=== PATIENT | female | born 1935 | race Caucasian/White ===

== ENCOUNTER 2017-12-16 09:16 | Inpatient (IN) | payer MEDICARE ==
[2017-12-16] MEDS ORDERED: NS 0.9% 1000 ML* 1,000 ML IV ONE (09:55)
[2017-12-16 10:17] LABS: Hematocrit 34 % (35-47); Hemoglobin 10.9 g/dl (12.0-16.0); Mean Corpuscular HGB Conc 32 g/dl (31-36); Mean Corpuscular Hemoglobin 19 pg (27-31); Mean Corpuscular Volume 58 fL (80-97); Red Blood Count 5.79 10^6/ul (4.0-5.4); Red Cell Distribution Width 17 % (10.5-15); White Blood Count 8.4 10^3/ul (3.5-10.8)
--- NOTE | 2017-12-16 11:03 | ED ---
Lower Extremity - HPI Summary HPI Summary: Patient is an 82-year-old female who presents emergency department for left hip pain. Patient has a history of dementia and currently lives by herself with the help of an aid and family. Patient reportedly fell going to the mailbox on Sunday, 3 days ago. There is no report of head injury or loss of consciousness. Patient was evaluated at [facility] for left hip pain and x- rays were normal and patient was sent home. Caregiver who is present states that patient has been unable to walk since fall secondary to left hip pain. Prior to fall she was ambulatory with or without a walker. Caregiver states that today she was helping patient sit up when she heard a pop in her left hip and patient had increased pain. Symptoms are moderate in severity. Touching hip and walking makes symptoms worse. Nothing makes symptoms better. Patient received IV morphine and Zofran in the ambulance prior to arrival. - History of Current Complaint Chief Complaint: EDExtremityLower Stated Complaint: HIP PAIN Time Seen by Provider: 12/16/17 09:34 Hx Obtained From: Patient, Family/Reviewer Sales Hx From Patient Unobtainable Due To: Dementia Pain Intensity: 10 - Allergies/Home Medications Allergies/Adverse Reactions: Allergies Allergy/AdvReac Type Severity Reaction Status Date / Time No Known Allergies Allergy Verified 09/17/13 09:03 Home Medications: Home Medications Losartan TAB* [Cozaar TAB*] 50 mg PO BID 12/16/17 [History Confirmed 12/16/17] Meclizine HCl [Dramamine Less Drowsy] 25 mg PO TID 12/16/17 [History Confirmed 12/16/17] Metoprolol Tartrate TAB* [Lopressor TAB*] 25 mg PO BID 12/16/17 [History Confirmed 12/16/17] Omeprazole CAP* [Prilosec CAP* 20 MG] 40 mg PO DAILY 12/16/17 [History Confirmed 12/16/17] Pioglitazone TAB* [Actos TAB*] 30 mg PO DAILY 12/16/17 [History Confirmed ] amLODIPine TAB* [Norvasc 5 mg TAB*] 5 mg PO DAILY 12/16/17 [History Confirmed ] PMH/Surg Hx/FS Hx/Imm Hx Previously Healthy: Yes Infectious Disease History: No Infectious Disease History: Denies: Traveled Outside the [place] in Last 30 Days - Social History Occupation: Retired Lives: Alone Alcohol Use: Rare Substance Use Type: Reports: None Smoking Status (MU): Never Smoked Tobacco Review of Systems Constitutional: Negative Eyes: Negative ENT: Negative Cardiovascular: Negative Respiratory: Negative Gastrointestinal: Negative Genitourinary: Negative Positive: Other - Left hip and left rib pain Skin: Negative Neurological: Negative All Other Systems Reviewed And Are Negative: Yes Physical Exam Triage Information Reviewed: Yes Vital Signs On Initial Exam: Initial Vitals Temp Pulse Resp BP Pulse Ox 99.5 F 86 16 158/81 82 12/16/17 09:25 12/16/17 09:25 12/16/17 09:25 12/16/17 09:25 12/16/17 09:25 Vital Signs Reviewed: Yes Appearance: Positive: Well-Appearing - Patient lying in bed in no acute distress. Pleasantly confused. Skin: Positive: Warm, Dry Head/Face: Positive: Normal Head/Face Inspection Eyes: Positive: Normal Respiratory/Lung Sounds: Positive: Clear to Auscultation, Breath Sounds Present , Other - Pain on palpation to the left lower anterior ribs. Cardiovascular: Positive: Normal, RRR Abdomen Description: Positive: Nontender Musculoskeletal: Positive: Other - Left lower extremity is shortened and externally rotated. Good palpable pedal pulse. Diagnostics - Vital Signs Vital Signs Temp Pulse Resp BP Pulse Ox 12/16/17 09:53 95 12/16/17 09:25 99.5 F 86 16 158/81 82 - Laboratory Lab Results: Lab Results 12/16/17 12/16/17 12/16/17 Range/Units 10:07 10:07 10:07 WBC 8.4 (3.5-10.8) 10^3/ul RBC 5.79 H (4.0-5.4) 10^6/ul Hgb 10.9 L (12.0-16.0) g/dl Hct 34 L (35-47) % MCV 58 L (80-97) fL MCH 19 L (27-31) pg MCHC 32 (31-36) g/dl RDW 17 H (10.5-15) % Plt Count Pending MPV Pending Neut % (Auto) Pending Lymph % (Auto) Pending [place] % (Auto) Pending Eos % (Auto) Pending Baso % (Auto) Pending Absolute Neuts (auto) Pending Absolute Lymphs (auto) Pending Absolute Monos (auto) Pending Absolute Eos (auto) Pending Absolute Basos (auto) Pending Absolute Nucleated RBC Pending Nucleated RBC % Pending APTT 31.3 (26.0-36.3) seconds Sodium 136 L (139-145) mmol/L Potassium 3.8 (3.5-5.0) mmol/L Chloride 104 (101-111) mmol/L Carbon Dioxide 24 (22-32) mmol/L Anion Gap 8 (2-11) mmol/L BUN 19 (6-24) mg/dL Creatinine 0.83 (0.51-0.95) mg/dL Est GFR ( Amer) 84.9 (>60) Est GFR (Non-Af Amer) 66.0 (>60) BUN/Creatinine Ratio 22.9 H (8-20) Glucose 150 H (70-100) mg/dL Calcium 8.6 (8.6-10.3) mg/dL Total Bilirubin 0.80 (0.2-1.0) mg/dL AST 14 (13-39) U/L ALT 9 (7-52) U/L Alkaline Phosphatase 103 (34-104) U/L Troponin I 0.01 (<0.04) ng/mL Total Protein 6.7 (6.4-8.9) g/dL Albumin 3.2 (3.2-5.2) g/dL Globulin 3.5 (2-4) g/dL Albumin/Globulin Ratio 0.9 L (1-3) Result Diagrams: 12/16/17 10:07 12/16/17 10:07 Lab Statement: Any lab studies that have been ordered have been reviewed, and results considered in the medical decision making process. Lower Extremity Course/Dx - Course Course Of Treatment: Patient present with ongoing left hip pain and deformity after fall that occurred on Sunday. She is afebrile with stable vital signs. Patient received IV morphine en route to the ER. Basic workup and x-rays were ordered. Patient's caregiver who is present states she is at her baseline mental status. Labs are unremarkable. X-ray of the left hip shows a proximal femur fracture. I spoke with on-call orthopedics, Dr. Hunetr, and he plans on taking patient to or tomorrow if she clears medically. I spoke with hospitalist , Dr. Hunter, and pt. has been accepted to his service. - Diagnoses Differential Diagnosis/HQI/PQRI: Positive: Arthritis, Contusion, Dislocation, Fracture (Closed), Sciatica, Sprain, Strain Provider Diagnoses: Femur fracture Discharge - Sign-Out/Discharge Documenting (check all that apply): Discharge/Admit/Transfer - Discharge Plan Condition: Stable Disposition: ADMITTED TO [facility] - Billing Disposition and Condition Condition: STABLE Disposition: HOSP-[facility]
[2017-12-16 11:10] LABS: ABS Basophils 0.1 10^3/ul (0-0.2); ABS Eosinophils 0.2 10^3/ul (0-0.6); ABS Lymphocytes 0.8 10^3/ul (1.0-4.8); ABS Monocytes 0.7 10^3/ul (0-0.8); ABS Neutrophils 6.6 10^3/ul (1.5-7.7); ABS Nucleated RBC 0 10^3/ul; Eosinophil % 2.9 % (0-6); Lymphocyte % 9.6 % (25-47); Mean Platelet Volume 8.8 um3 (7.4-10.4); Nucleated Red Blood Cells % 0.1; Platelet Count 190 10^3/ul (150-450)
--- NOTE | 2017-12-16 13:04 | RAD ---
Indication: LEFT rib pain post fall. Comparison: No relevant prior exams available on the [facility] [place] for comparison. Technique: Frontal chest and 2 dedicated LEFT rib views obtained. No oblique LEFT rib view could be obtained due to limitation in patient positioning. Report: Elevated lung volumes and moderate prominence of interstitial markings. Suggestion of a 4 mm potentially calcified nodule at the periphery of the RIGHT lower lung zone. Mild elevation of the LEFT hemidiaphragm. LEFT basilar airspace consolidation may represent atelectasis or inflammatory infiltrate. Negative for pleural effusion or pneumothorax. Cardiomegaly. Unremarkable central pulmonary vasculature. Mildly tortuous thoracic aorta. Unremarkable soft tissue contours. IMPRESSION: 1. No LEFT rib fracture or pneumothorax evident. 2. Suggestion of a 4 mm potentially calcified nodule at the periphery of the RIGHT lower lung zone. In absence of prior exams to document stability a nonemergent follow-up chest CT would be suggested for further assessment. The patient may have had previous radiographs have [facility]. 3. Stigmata of chronic obstructive pulmonary disease. 4. LEFT basilar airspace consolidation may represent atelectasis or inflammatory infiltrate.
--- NOTE | 2017-12-16 13:08 | RAD ---
Indication: LEFT femur pain post fall. Comparison: No relevant prior exams available on the [facility] [place]ACS for comparison. Technique: AP pelvis and AP and oblique lateral views of the LEFT femur. Crosstable lateral view femur at the hip. Report: Subtrochanteric diaphyseal fracture of the LEFT femur with varus and apex anterior angulation. Diffuse decreased bone density without suggestion of a predisposing focal pathologic lesion at the intratrochanteric region of the femur. Small bone island at the intratrochanteric region. Surrounding soft tissue swelling proximal to mid thigh. The LEFT hip remains normally located. No pelvic fracture or pelvic joint diastases. IMPRESSION: Subtrochanteric diaphyseal fracture of the LEFT femur with varus and apex anterior angulation.
--- NOTE | 2017-12-16 13:08 | RAD ---
Indication: LEFT femur pain post fall. Comparison: No relevant prior exams available on the [facility] [place]ACS for comparison. Technique: AP pelvis and AP and oblique lateral views of the LEFT femur. Crosstable lateral view femur at the hip. Report: Subtrochanteric diaphyseal fracture of the LEFT femur with varus and apex anterior angulation. Diffuse decreased bone density without suggestion of a predisposing focal pathologic lesion at the intratrochanteric region of the femur. Small bone island at the intratrochanteric region. Surrounding soft tissue swelling proximal to mid thigh. The LEFT hip remains normally located. No pelvic fracture or pelvic joint diastases. IMPRESSION: Subtrochanteric diaphyseal fracture of the LEFT femur with varus and apex anterior angulation.
[2017-12-16] MEDS ORDERED: Morphine VIAL* 4 MG/ML VIAL (1 ml vial) IV PRN (13:13)
[2017-12-16] MEDS ORDERED: Dextrose 50% Syringe 50 ML* 25 GM/50 ML SYRINGE IV PUSH PRN (13:38)
[2017-12-16] MEDS: Metoprolol Tartrate TAB* 25 MG PO SCH ×2 (16:04→21:46)
[2017-12-16] MEDS: Omeprazole CAP* 20 MG PO SCH (16:04)
[2017-12-16] MEDS ORDERED: HYDROmorphone INJ* 2 MG/ML CARPUJECT SYRINGE IV SLOW PU PRN (16:05)
[2017-12-16] MEDS ORDERED: HYDROmorphone INJ* 2 MG/ML CARPUJECT SYRINGE ONE (16:06)
--- NOTE | 2017-12-16 17:04 | HP ---
HISTORY AND PHYSICAL: DATE OF ADMISSION: 12/16/17 ADMITTING PROVIDER: Ted Dominguez MD PRIMARY CARE PHYSICIAN: Jairo Mendez DO CHIEF COMPLAINT: Left hip pain. HISTORY OF PRESENT ILLNESS: Niki Jonas is an 82-year-old female with past medical history of hypertension, dementia, llc-fhxwhkt-lrrpbstol diabetes mellitus, who had a non-observed fall 2 days prior to admission, she was walking from paved area into grass area after picking up her mail. Her partner , Daina Cerda was quickly on the scene. She denies any loss of consciousness. She was taken to the ED at [facility] and had reportedly x-rays done that reportedly did not show any signs of fracture. She was discharged home. She has had reduced mobility, has been taken care of by her primary care physician, Marnie Villanueva, who is at bedside. Day prior to admission, they attempted to get her to the side of the bed and then into her rolling walker, but she was unable to support herself and they could not as well. She was assisted to the ground and then eventually lifted back into the bed. On day of admission, Marnie attempted to swing the patient's legs to the side of the bed to again try to help her sit on the side, but she immediately heard a pop and there was exquisite pain in the left hip area. She was brought to the [facility] Room and eventually had imaging consistent with femur fracture. She was referred to hospitalist service for admission with planned operational management of her subtrochanteric diaphyseal fracture of the left femur with Dr. Hunter on . The patient attests to 8-9/10 pain, may or may not have gotten some morphine with EMS (Marnie was told that she had gotten some at some point). She is a poor historian with history of dementia. She denies history of falls, but gets meclizine 3 times a day for chronic dizziness. Denies chest pain or shortness of breath currently, but is fairly immobile, walking slowly with a walker. She has chills, but no fevers. Chronically, Marnie attests to some chronic tenderness to palpation in the left upper quadrant and overall is "very sensitive," complaining of pain frequently in various locations. She denies any cardiac history other than high blood pressure for which she is on 3 agents. Has never reportedly had an echo, no EKG in our system. PAST MEDICAL HISTORY: Dementia, high blood pressure, noninsulin-dependent diabetes mellitus. She had a traumatic fall in February 2006, which showed "a little bit of intracerebral bleeding." She was diagnosed with a brain contusion. She had repeat MRI brain on 03/05/06, which showed a small subdural hematoma on the right side, small left frontal hemorrhagic contusion, subcutaneous subgaleal hematoma of the right occipital lobe. Repeat CT on 03/06 showed no changes. MEDICATIONS: Include: 1. Omeprazole 40 mg daily. 2. Meclizine 25 mg 3 times a day. 3. Metoprolol tartrate 25 mg twice a day. 4. Amlodipine 5 mg once a day. 5. Pioglitazone 30 mg once a day. 6. Losartan 50 mg twice a day. ALLERGIES: No known drug allergies. FAMILY HISTORY: The patient [facility] after given up for adoption. Does not know much about her 6 biological siblings, the one of which was in a group home and a half-brother who was contacted few years ago by Marnie. 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 She is a never smoker. Occasionally had small amounts of alcohol, but none recently. She lives with Dave Cerda, who is her partner who is recently discharged from [facility], history of schizophrenia, age 79. Marnie Villanueva is her power of real estate associate attorney. She reportedly is a DNR/DNI. MOLST form is not present on admission. REVIEW OF SYSTEMS: A complete 14-point review of systems negative except as per HPI. She is a poor historian overall. She does have a history of what was thought to be perhaps urinary bleeding and had a workup with Dr. Malik in the past including a CT urogram in 2013. Denies history of colonoscopy as does Marnie. She had cholelithiasis on the CT urogram on 09/17/13. PHYSICAL EXAMINATION GENERAL: Moderate distress intermittent, lying in hospital bed. VITAL SIGNS: Temperature 99.5; pulse rate 78 to 84; respiratory rate 16 to 20; initially oxygen sat was 82% on room air, now 92% on 2 L; blood pressure 158/81 , now 124/57. HEENT: Normocephalic, atraumatic. Pupils are equal, round, and reactive to light. No scleral icterus. NECK: No cervical lymphadenopathy. Neck is supple. RESPIRATORY: Anteriorly clear to auscultation bilaterally with no wheezing, rales, or rhonchi. CARDIOVASCULAR: Regular rate and rhythm. No murmurs, rubs, or gallops. ABDOMEN: Soft, nondistended, slightly tender in the left upper quadrant. EXTREMITIES: Warm, well perfused. There is foreshortening of the left extremity. NEURO: Sensation intact. Wiggles both toes. Vacuum Pan Operator strength intact. She is oriented to name, but not year or place. She thinks she is in an apartment building. Memory is not great, though she does recognize [place] by name. SKIN: No lesions. No rashes. LABORATORY DATA: White count 8.4, hemoglobin 10.9, hematocrit 34, MCV 58, platelets 190. Sodium 136, potassium 3.8, chloride 104, carbon dioxide 24, BUN 19, creatinine 0.83, glucose 150. AST 14, ALT 9, alk phos 103. Troponin 0.01. IMAGING: Pelvis x-ray demonstrated subtrochanteric diaphyseal fracture of the left femur with varus and apex anterior angulation. Ribs with chest x-ray demonstrated no left rib fracture. There is a 4 mm potentially calcified nodule at the periphery of the right lower lung zone, stigmata of COPD, left basilar airspace consolidation may represent atelectasis or inflammatory infiltrate. The femur x- ray on the left, which again showed subtrochanteric diaphyseal fracture of the left femur with varus and apex anterior angulation. ASSESSMENT AND PLAN: Niki Jonas is an 82-year-old female with history of significant dementia, hypertension, hda-sjwomop-eyttejmsk diabetes mellitus. Her functional status seems somewhat limited. It is not clear that she can achieve 4 METs. An EKG was obtained, which shows T-wave inversion in V1, normal sinus rhythm, normal axis, poor R-wave progression, no ST elevations or changes. I will try to obtain records from Dr. Mendez' office. Her last A1c was 6.3 in June 2017. We will repeat that. Her last LDL was 102, HDL was 43. We will consider adding an echocardiogram given her limited ability (secondary to dementia?) to go upstairs or probably achieve 4 METs of activity given her high blood pressure and diabetes. Otherwise, she is medically optimized for surgery with Dr. Hunter tomorrow. We will get point of care glucose testing q.a.c. q.h.s. with sliding scale insulin. Continue her metoprolol, losartan and Norvasc. Hold her pioglitazone. Continue her omeprazole. Her medical surrogate is Marnie Kay. We will have to get the MOLST from home or fill out a new one. She is a DNR/DNI. She can eat a carbohydrate consistent heart- healthy diet. Physical therapy will have to be onboard after the surgery. She gets significant 7-day a week help from home health aides, but likely will need SNF home going. She also has a history of what seems like anemia at the ER labs with severe microcytosis. I am adding on iron panel, ferritin level, concern for possible thalassemia, but we will await for further records from Dr. Mendez before potentially doing any hemoglobin electrophoresis. She is being admitted to the inpatient status. [id number]/[facility] #: [id number] JACOB
[2017-12-16] MEDS ORDERED: Ondansetron INJ* 2 MG/ML VIAL IV PRN (17:56)
[2017-12-16] MEDS: Insulin LISPRO* 1 UNITS UNIT SUBCUT SCH ×2 (18:01→22:10)
--- NOTE | 2017-12-16 18:12 | PN ---
Progress Note - Progress Note Date of Service: 12/16/17 Note: Full note dictated. Displaced L subtrochanteric femur fracture. Dr. Dominguez doing medical optimization. It sounds like she will be ready for tomorrow so npo at midnight and plan for closed versus open reduction and internal fixation with a long gamma nail.
--- NOTE | 2017-12-16 20:52 | CONS ---
CONSULTATION REPORT: DATE OF CONSULT: 12/16/17 CHIEF COMPLAINT: Left femur fracture. HISTORY OF PRESENT ILLNESS: Niki is 82 years old. She has past medical history of hypertension, dementia, and noninsulin-dependent diabetes. A couple of days ago, she had a fall on to a grassy area. She was taken to [facility] where x- rays were reportedly done and per the information I have available to me, these were negative for any issues and so they sent her home. She continued to have left hip pain. This morning, Marnie her caregiver for many years and her power-of- securities attorney was noticed that the area was swollen and she decided something was wrong and so she brought her back in and a subtrochanteric femur fracture was identified. She was in severe pain. She was admitted by the hospitalist service and I was consulted for her orthopedic care. She is not complaining of pain in other areas. PAST MEDICAL HISTORY: Again taken from her chart. This is positive for dementia, hypertension, diabetes. Her H and P mentions fall in February 2006, which showed a little bit of intracranial bleeding and she was diagnosed with a brain contusion. Repeat MRI of the brain on 02/2017 showed small subdural hematoma as well as a small left frontal hemorrhagic contusion and subcutaneous subgluteal hematoma on the right occipital lobe. Repeat CT scan in March 06 showed no changes. PAST SURGICAL HISTORY: Not available to me. MEDICATIONS: These include: 1. Omeprazole. 2. Meclizine. 3. Metoprolol. 4. Amlodipine. 5. Pioglitazone. 6. Losartan. ALLERGIES: No known drug allergies. FAMILY HISTORY: Noncontributory. SOCIAL HISTORY: She is a former direct support worker. She lives with her partner, Dave. He has schizophrenia and was recently in the [facility]. She is cared for by a caregiver, Marnie Hamilton whose phone number is . As I understand that she has never smoked and does not have any issues with substance abuse. REVIEW OF SYSTEMS: This is largely unobtainable due to her slightly altered mental status secondary to the fracture pain and now extensive narcotic pain medication. PHYSICAL EXAM: General: Awake, but did not really conversive. Her vital signs are 98.5, 89, 143/63, 20, and 97% on room air. HEENT: Normocephalic, atraumatic. Neck is supple. She moves it without any apparent pain. Respiratory: She has normal respiratory effort. Extremities: The left lower extremity is significantly shortened and externally rotated. She does not really comply with the neurological exam, but I do note that just grossly she seems to be wiggling her toes. Skin: Some mild bruising. No bleeding or lacerations. DIAGNOSTIC STUDIES/LAB DATA: Her white blood cell count 8.4, H and H 10.9 and 34, platelet count is 190. APTT is 31.3. Sodium is 136, creatinine is 0.83, glucose is 150. Liver enzymes are all within normal limits. IMAGING: X-rays of the pelvis and left femur show a displaced subtrochanteric femur fracture. IMPRESSION: Displaced left subtrochanteric femur fracture. She likely fractured the femur a couple of days ago when she had the fall and now has displaced the fracture. PLAN: She has been admitted by the hospitalist service and appropriately been placed on bed rest and is receiving IV hydration and Gonzalez catheter has been placed. Dr. Dominguez with the hospitalist service is performing her medical optimization based off of his note, he says he may consider adding an echocardiogram, but otherwise she is medically optimized for surgery tomorrow. We will make her n.p.o. at midnight. The plan will be for close versus open reduction of the left femur fracture with long gamma nail internal fixation. It sounds like her medical decision maker is Marnie Hamilton, her power-of- securities attorney, again the number is [phone]. She does not have any children. She does have a longstanding partner, Dave, but he has pretty extensive psychiatric illness and is recently discharged from the [facility]. We will review from all this in the morning. [id number]/[facility] #: [id number] JACOB
[2017-12-16] MEDS: Morphine VIAL* 4 MG/ML VIAL (1 ml vial) IV PRN (22:06)
[2017-12-16] MEDS: Losartan TAB* 25 MG PO SCH (22:13)
[2017-12-17] MEDS: Morphine VIAL* 4 MG/ML VIAL (1 ml vial) IV PRN ×3 (03:39→10:27)
[2017-12-17 05:54] LABS: Hematocrit 34 % (35-47); Hemoglobin 10.9 g/dl (12.0-16.0); Mean Corpuscular HGB Conc 32 g/dl (31-36); Mean Corpuscular Hemoglobin 19 pg (27-31); Mean Corpuscular Volume 59 fL (80-97); Red Blood Count 5.67 10^6/ul (4.0-5.4); Red Cell Distribution Width 17 % (10.5-15)
[2017-12-17 06:15] LABS: EGFR Non-African American 66.9 (>60)
[2017-12-17 06:17] LABS: ABS Basophils 0.1 10^3/ul (0-0.2); ABS Eosinophils 0.3 10^3/ul (0-0.6); ABS Lymphocytes 1.4 10^3/ul (1.0-4.8); ABS Monocytes 0.9 10^3/ul (0-0.8); ABS Neutrophils 6.3 10^3/ul (1.5-7.7); ABS Nucleated RBC 0 10^3/ul; Eosinophil % 3.1 % (0-6); Lymphocyte % 15.4 % (25-47); Mean Platelet Volume 9.1 um3 (7.4-10.4); Nucleated Red Blood Cells % 0.1; Platelet Count 192 10^3/ul (150-450)
[2017-12-17] MEDS: Insulin LISPRO* 1 UNITS UNIT SUBCUT SCH ×4 (07:18→21:02)
--- NOTE | 2017-12-17 08:35 | ECHO ---
Patient: BHANU MIKE [facility] Rec#: [id number] : 1935 Date: 12/17/2017 Age: 82y Height: 157.48 cm / 62.0 in Weight: 65.77 kg / 145.0 lbs Sex: F BSA: 1.67 Room#: 334 Admit Date#: 12/16/2017 Type: Inpatient Referring: Ted Dominguez Reading: Dax Allred MD Straightening Machine Feeder: Trisha Waite RDCS CC: Jairo Mendez DO Transthoracic Echocardiogram Indication: Abn EKG BP: 121/65 HR: 88 Rhythm: NSR Findings History: Prior fall with subdural hematoma and brain contusion,dementia,HTN,admitted after a fall that fractured a hip. Technical Comments: The study is technically difficult. Completed at 0815. The study was technically limited due to the patient's inability to lay in the left lateral decubitus position. Left Ventricle: The left ventricular chamber size is decreased. Global left ventricular wall motion and contractility are within normal limits. There is normal left ventricular systolic function. The estimated ejection fraction is 55-60%. Abnormal left ventricular diastolic function is observed. Left Atrium: The left atrial chamber size is normal. Right Ventricle: The right ventricular cavity size is normal. The right ventricular global systolic function is normal. Right Atrium: The right atrium is not well visualized. Aortic Valve: The aortic valve is trileaflet. There is no evidence of aortic regurgitation. There is no evidence of aortic stenosis. Mitral Valve: The mitral valve leaflets are mildly thickened. There is no evidence of mitral regurgitation. There is no evidence of mitral stenosis. Tricuspid Valve: The tricuspid valve leaflets are normal. There is mild tricuspid regurgitation. Unable to estimate the right ventricular systolic pressure. There is no tricuspid stenosis. Pulmonic Valve: The pulmonic valve appears normal in structure and function. The pulmonic valve appears normal. Pericardium: The pericardium appears normal. Aorta: There is no dilatation of the ascending aorta. There is no dilatation of the aortic arch. There is no dilation of the aortic root. Pulmonary Artery: The main pulmonary artery appears normal. Venous: The venous system is not well visualized. Conclusions Global left ventricular wall motion and contractility are within normal limits. There is normal left ventricular systolic function. The estimated ejection fraction is 55-60%. The right ventricular global systolic function is normal. There is no evidence of aortic regurgitation. There is no evidence of mitral regurgitation. There is mild tricuspid regurgitation. Unable to estimate the right ventricular systolic pressure. There is no dilatation of the ascending aorta. Measurements Name Value Normal Range RVIDd (AP) 2D 2.8 cm (0.9 - 2.6) IVSd (2D) 0.7 cm (0.6 - 1) LVPWd (2D) 0.8 cm (0.6 - 1) LVIDd (2D) 3.5 cm (3.6 - 5.4) LVIDs (2D) 2.5 cm - LV FS (2D) 30 % (25 - 45) Aortic Annulus 1.9 cm (1.4 - 2.6) Ao root diameter (2D) 3.1 cm (2.1 - 3.5) Ascending Ao 3 cm (2.1 - 3.4) Aortic arch 2.2 cm (1.8 - 3.4) Descending Ao 0.4 cm - LA dimension (AP) 2D 2.6 cm (2.3 - 3.8) Name Value Normal Range MV E-wave Vmax 0.7 m/sec - MV deceleration time 252 msec - MV A-wave Vmax 1.1 m/sec - MV E:A ratio 0.66 ratio - LV septal e' Vmax 0.06 m/sec - LV lateral e' Vmax 0.08 m/sec - LV E:e' septal ratio 11.66 ratio - LV E:e' lateral ratio 8.75 ratio - Name Value Normal Range AV Vmax 1.4 m/sec - AV VTI 33 cm - AV peak gradient 7.42 mmHg - AV mean gradient 3.36 mmHg - LVOT Vmax 1.2 m/sec - LVOT VTI 28.3 cm - LVOT peak gradient 5.8 mmHg - LVOT mean gradient 2.25 mmHg - Name Value Normal Range TR Vmax 3.1 m/sec - TR peak gradient 37 mmHg - Name Value Normal Range PV Vmax 0.9 m/sec - PV peak gradient 2.94 mmHg -
--- NOTE | 2017-12-17 08:58 | PN ---
Hospitalist Progress Note Date of Service: 12/17/17 ECHO back, preserved EF, abnormal diastolic dysfunction, mild Tricuspid Valve Regurg. Patient cleared medically for left femur fracture surgery.
[2017-12-17] MEDS: amLODIPine TAB* 5 MG PO SCH (10:15)
[2017-12-17] MEDS: Losartan TAB* 25 MG PO SCH ×2 (10:15→21:03)
[2017-12-17] MEDS: Omeprazole CAP* 20 MG PO SCH (10:16)
[2017-12-17] MEDS: Metoprolol Tartrate TAB* 25 MG PO SCH ×2 (10:23→21:03)
[2017-12-17] MEDS ORDERED: fentaNYL* 50 MCG/ML 2 ML VIAL (100 MCG VIAL) ONE (12:06)
[2017-12-17] MEDS ORDERED: Midazolam* 1 MG/ML 5 ML VIAL (5 MG) ONE (12:06)
[2017-12-17] MEDS ORDERED: ceFAZolin 2 GM PREMIX (*) 2 GM/50 ML BAG IVPB ONE (13:00)
[2017-12-17] MEDS ORDERED: Lidocaine 2% PF * 5 ML VIAL ONE (14:52)
[2017-12-17] MEDS ORDERED: Ketorolac INJ* 30 MG/ML 1 ML VIAL ONE (14:52)
[2017-12-17] MEDS ORDERED: Dexamethasone IV* 4 MG/ML 1 ML (4 MG) ONE (14:52)
[2017-12-17] MEDS ORDERED: Propofol* 10 MG/ML 20 ML BTL IV PUSH ONE (14:52)
[2017-12-17] MEDS ORDERED: Naloxone* 0.4 MG/ML 1 ML VIAL IV PRN (14:54)
[2017-12-17] MEDS ORDERED: DiMENhydriNATE IV* 50 MG/ML VIAL IV PUSH PRN (14:54)
[2017-12-17] MEDS ORDERED: Acetaminophen IV 1GM/100ML * 1,000 MG/100 ML VIAL IVPB ONE (14:54)
[2017-12-17] MEDS ORDERED: HYDROmorphone INJ* 1 MG/ML CARPUJECT SYRINGE IV PRN (14:54)
[2017-12-17] MEDS ORDERED: HYDROmorphone INJ* 1 MG/ML CARPUJECT SYRINGE ONE (15:09)
[2017-12-17] MEDS ORDERED: Acetaminophen IV 1GM/100ML * 100 ML ONE (15:32)
--- NOTE | 2017-12-17 16:05 | RAD ---
INDICATION: Left femur fracture, fall COMPARISONS: December 16, 2017 TECHNIQUE: Fluoroscopy was provided for a surgical procedure. Total fluoroscopy time is: 80 seconds FINDINGS: Spot images demonstrate internal fixation of the femur. IMPRESSION: FLUOROSCOPY WAS PROVIDED FOR A SURGICAL PROCEDURE CPT II Codes: G9500
--- NOTE | 2017-12-17 20:14 | PN ---
Subjective Date of Service: 12/17/17 Interval History: ECHO back, preserved EF, abnormal diastolic dysfunction, mild Tricuspid Valve Regurg. Patient cleared medically for left femur fracture surgery. Medically cleared for surgery. Pain moderately controlled. Objective Active Medications: Amlodipine Besylate (Norvasc Tab*) 5 mg PO DAILY [facility] Last Admin: 12/17/17 10:15 Dose: Not Given Dextrose (D50w Syringe 50 Ml*) 12.5 gm IV PUSH .FOR FS < 60 - SS PRN PRN Reason: FS < 60 Cefazolin Sodium/Dextrose (Kefzol 1 Gm In Dextrose Duplex (*)) 1 gm in 50 mls @ 200 mls/hr IVPB Q8H [facility] Stop: 12/18/17 13:14 Insulin Human Lispro (Humalog*) 0 units SUBCUT ACHS [facility] PRN Reason: Protocol Last Admin: 12/17/17 17:50 Dose: Not Given Losartan Potassium (Cozaar Tab*) 50 mg PO BID [facility] Last Admin: 12/17/17 10:15 Dose: Not Given Metoprolol Tartrate (Lopressor Tab*) 25 mg PO BID [facility] Last Admin: 12/17/17 10:23 Dose: 25 mg Morphine Sulfate (Morphine Vial*) 2 mg IV Q3H PRN PRN Reason: PAIN - MILD Last Admin: 12/17/17 10:27 Dose: 2 mg Naloxone HCl (Narcan*) 0.08 mg IV Q2M PRN PRN Reason: severe induced resp depression Stop: 12/18/17 14:53 Omeprazole (Prilosec Cap*) 40 mg PO DAILY [facility] Last Admin: 12/17/17 10:16 Dose: Not Given Ondansetron HCl (Zofran Inj*) 4 mg IV Q4H PRN PRN Reason: NAUSEA Last Admin: 12/16/17 18:05 Dose: 4 mg Vital Signs - 8 hr 12/17/17 12/17/17 12/17/17 15:36 15:37 15:40 Temperature 98.1 F Pulse Rate 77 75 74 Respiratory 16 17 13 Rate Blood Pressure 146/71 (mmHg) O2 Sat by Pulse 87 89 91 Oximetry 12/17/17 12/17/17 12/17/17 15:41 15:45 15:46 Temperature Pulse Rate 75 67 66 Respiratory 19 18 10 Rate Blood Pressure 146/68 123/65 (mmHg) O2 Sat by Pulse 90 96 95 Oximetry 12/17/17 12/17/17 12/17/17 15:50 15:51 15:55 Temperature Pulse Rate 66 63 66 Respiratory 10 18 13 Rate Blood Pressure 109/51 (mmHg) O2 Sat by Pulse 91 91 91 Oximetry 12/17/17 12/17/17 12/17/17 15:56 16:00 16:01 Temperature Pulse Rate 70 69 63 Respiratory 11 23 12 Rate Blood Pressure 110/47 99/44 (mmHg) O2 Sat by Pulse 90 91 91 Oximetry 12/17/17 12/17/17 12/17/17 16:05 16:13 16:14 Temperature Pulse Rate 62 63 61 Respiratory 17 19 18 Rate Blood Pressure 107/48 (mmHg) O2 Sat by Pulse 92 91 91 Oximetry 12/17/17 12/17/17 12/17/17 16:18 16:20 16:25 Temperature Pulse Rate 65 62 64 Respiratory 20 17 19 Rate Blood Pressure 113/71 (mmHg) O2 Sat by Pulse 94 93 96 Oximetry 12/17/17 12/17/17 12/17/17 16:30 16:45 16:50 Temperature Pulse Rate 65 63 70 Respiratory 17 15 17 Rate Blood Pressure 106/64 (mmHg) O2 Sat by Pulse 90 94 94 Oximetry 12/17/17 12/17/17 12/17/17 16:55 17:00 17:15 Temperature Pulse Rate 61 63 Respiratory 13 15 18 Rate Blood Pressure 115/59 (mmHg) O2 Sat by Pulse 91 95 95 Oximetry 12/17/17 12/17/17 12/17/17 17:16 17:30 17:31 Temperature Pulse Rate 59 56 67 Respiratory 20 9 16 Rate Blood Pressure 107/52 105/52 (mmHg) O2 Sat by Pulse 94 98 98 Oximetry 12/17/17 12/17/17 12/17/17 17:45 17:46 18:07 Temperature 97.1 F Pulse Rate 58 62 69 Respiratory 18 17 18 Rate Blood Pressure 107/57 101/54 (mmHg) O2 Sat by Pulse 98 96 93 Oximetry 12/17/17 19:04 Temperature 96.9 F Pulse Rate 65 Respiratory 16 Rate Blood Pressure 94/45 (mmHg) O2 Sat by Pulse 98 Oximetry Oxygen Devices in Use Now: Nasal Cannula Appearance: NAD Eyes: No Scleral Icterus, PERRLA Neck: NL Appearance and Movements; NL JVP, Trachea Midline Respiratory: Symmetrical Chest Expansion and Respiratory Effort, Clear to Auscultation Cardiovascular: NL Sounds; No Murmurs; No JVD Abdominal: NL Sounds; No Tenderness; No Distention, No Hepatosplenomegaly Lymphatic: No Cervical Adenopathy Extremities: No Edema, No Clubbing, Cyanosis, - - left leg shortened Skin: No Rash or Ulcers, No Nodules or Sclerosis Neurological: NL Sensation, - - oriented to name, but not place Nutrition: Taking PO's Result Diagrams: 12/17/17 05:08 12/17/17 05:08 Additional Lab and Data: Laboratory Results - last 24 hr 12/16/17 12/17/17 12/17/17 10:07 05:08 05:08 WBC 9.0 RBC 5.67 H Hgb 10.9 L Hct 34 L MCV 59 L MCH 19 L MCHC 32 RDW 17 H Plt Count 192 MPV 9.1 Neut % (Auto) 70.5 Lymph % (Auto) 15.4 L [place] % (Auto) 10.4 H Eos % (Auto) 3.1 Baso % (Auto) 0.6 Absolute Neuts (auto) 6.3 Absolute Lymphs (auto) 1.4 Absolute Monos (auto) 0.9 H Absolute Eos (auto) 0.3 Absolute Basos (auto) 0.1 Absolute Nucleated RBC 0 Nucleated RBC % 0.1 Hem Pathologist Commnt Sodium 138 L Potassium 4.1 Chloride 103 Carbon Dioxide 27 Anion Gap 8 BUN 23 Creatinine 0.82 Est GFR ( Amer) 86.0 Est GFR (Non-Af Amer) 66.9 BUN/Creatinine Ratio 28.0 H Glucose 116 H POC Glucose (mg/dL) Calcium 8.9 Iron 29 L TIBC 279 % Saturation 10 L Unsat Iron Binding 250 Transferrin 199 L Ferritin 147.5 12/17/17 12/17/17 12:29 15:39 WBC RBC Hgb Hct MCV MCH MCHC RDW Plt Count MPV Neut % (Auto) Lymph % (Auto) [place] % (Auto) Eos % (Auto) Baso % (Auto) Absolute Neuts (auto) Absolute Lymphs (auto) Absolute Monos (auto) Absolute Eos (auto) Absolute Basos (auto) Absolute Nucleated RBC Nucleated RBC % Hem Pathologist Commnt Sodium Potassium Chloride Carbon Dioxide Anion Gap BUN Creatinine Est GFR ( Amer) Est GFR (Non-Af Amer) BUN/Creatinine Ratio Glucose POC Glucose (mg/dL) 132 H 143 H Calcium Iron TIBC % Saturation Unsat Iron Binding Transferrin Ferritin Assess/Plan/Problems-Billing Assessment: 82 yo female PMH severe dementia, HTN, NIDDM, p/w left femur fracture. diastolic dysfunction - Patient Problems (1) Femur fracture, left Current Visit: Yes Status: Acute Code(s): S72.92XA - UNSP FRACTURE OF LEFT FEMUR, INIT ENCNTR FOR CLOSED FRACTURE SNOMED Code(s): 81262494 Comment: appreciate ortho assistance cleared medically for OR. RCRI 0-1(some diastolic dysfunction on ECHO, NIDDM), low risk for major cardiac event) PT likely to SNF (2) Diabetes mellitus Current Visit: Yes Status: Acute Code(s): E11.9 - TYPE 2 DIABETES MELLITUS WITHOUT COMPLICATIONS SNOMED Code(s): 90815723 Comment: A1C 7.5 POC qachs holding home pioglitizone SSI (3) HTN (hypertension) Current Visit: Yes Status: Acute Code(s): I10 - ESSENTIAL (PRIMARY) HYPERTENSION SNOMED Code(s): 54877561 Comment: amlodipine 5mg metoprolol 25mg BID (4) Severe dementia Current Visit: Yes Status: Acute Code(s): F03.90 - UNSPECIFIED DEMENTIA WITHOUT BEHAVIORAL DISTURBANCE SNOMED Code(s): 13445537 Comment: has home aides 7 days a week. (5) Diastolic dysfunction Current Visit: Yes Status: Acute Code(s): I51.9 - HEART DISEASE, UNSPECIFIED SNOMED Code(s): 2719925 Comment: not in acute exacerbation. now Hx of CHF. Status and Disposition: medicine inpatient.
[2017-12-17] MEDS: ceFAZolin 1 GM in Dextrose (*) 1 GM/50 ML BAG IVPB SCH (21:01)
--- NOTE | 2017-12-17 21:39 | OP ---
DATE OF OPERATION: 12/17/17 - ROOM #334 DATE OF : 37 SURGEON: Afshin Ocasio MD INCISING MACHINE OPERATOR: Olivia Cornelius PA-C PRE-OP DIAGNOSIS: Left subtrochanteric hip fracture. POST-OP DIAGNOSIS: Left subtrochanteric hip fracture. OPERATIVE PROCEDURE: TFN nailing, left hip. DESCRIPTION OF PROCEDURE: The patient was taken to the operating room where noninvasive longitudinal traction was applied. We opened up a 6-cm longitudinal incision centered on the greater trochanter. I divided the deep fascia just above the trochanter, passed the starting pin, the starting reamer, and passing all through the proximal femur up to the mouth of the femoral shaft. We then passed the guide pin all the way down to the knee area. We measured a 360-cm length nail. We then reamed up to a 13.5 and placed a 12-mm diameter by 360 mm length femoral nail. With the proximal targeting device, we were able to pass the guide pin and proximally up into the center of the femoral head and an appropriate length spiral screw then was driven up through the nail into the center of the head. We locked this proximally. This area of the wound then was closed with deep #1 Vicryl sutures for the fascial incision, some 0 Vicryl sutures for the subcutaneous tissue and pasha for the skin. Distally, we were able to identify the 2 transverse locking holes and the distal plate. We drilled over using the image intensifier, placing a 42-mm and then a 36- mm screw, and proper positioning was noted on the AP and lateral views. These wounds were irrigated and closed with 2-0 Prolene sutures. Compression dressing was then applied. BLOOD LOSS: 250 mL. [id number]/[facility] #: [id number] [facility]
[2017-12-18 05:12] LABS: Hematocrit 27 % (35-47); Hemoglobin 8.5 g/dl (12.0-16.0); Mean Corpuscular HGB Conc 31 g/dl (31-36); Mean Corpuscular Hemoglobin 19 pg (27-31); Mean Corpuscular Volume 59 fL (80-97); Red Cell Distribution Width 17 % (10.5-15); White Blood Count 8.5 10^3/ul (3.5-10.8)
[2017-12-18] MEDS: ceFAZolin 1 GM in Dextrose (*) 1 GM/50 ML BAG IVPB SCH ×2 (05:20→13:27)
[2017-12-18 05:28] LABS: EGFR Non-African American 47.7 (>60)
[2017-12-18 05:38] LABS: ABS Basophils 0 10^3/ul (0-0.2); ABS Eosinophils 0 10^3/ul (0-0.6); ABS Lymphocytes 0.5 10^3/ul (1.0-4.8); ABS Monocytes 0.6 10^3/ul (0-0.8); ABS Neutrophils 7.3 10^3/ul (1.5-7.7); ABS Nucleated RBC 0 10^3/ul; Eosinophil % 0 % (0-6); Lymphocyte % 6.2 % (25-47); Mean Platelet Volume 8.5 um3 (7.4-10.4); Nucleated Red Blood Cells % 0.1; Platelet Count 148 10^3/ul (150-450)
[2017-12-18] MEDS: Morphine VIAL* 4 MG/ML VIAL (1 ml vial) IV PRN (06:13)
[2017-12-18] MEDS: NS 0.9% 1000 ML* 1,000 ML IV SCH ×2 (07:40→21:33)
[2017-12-18] MEDS: Polyethylene Glycol 3350* 17 GM PACKET PO PRN (08:48)
[2017-12-18] MEDS: oxyCODONE/Acetamin 5/325 MG* TAB PO PRN ×4 (08:49→21:29)
[2017-12-18] MEDS: Losartan TAB* 25 MG PO SCH (08:49)
[2017-12-18] MEDS: amLODIPine TAB* 5 MG PO SCH (08:51)
[2017-12-18] MEDS: Senna TAB PO SCH (08:52)
[2017-12-18] MEDS: Docusate CAP* 100 MG PO SCH (08:52)
[2017-12-18] MEDS: Metoprolol Tartrate TAB* 25 MG PO SCH ×2 (08:52→19:38)
[2017-12-18] MEDS: Omeprazole CAP* 20 MG PO SCH (08:54)
[2017-12-18] MEDS: Insulin LISPRO* 1 UNITS UNIT SUBCUT SCH ×4 (08:55→21:30)
--- NOTE | 2017-12-18 21:07 | PN ---
Progress Note - Progress Note Date of Service: 12/18/17 SOAP: Subjective: []Patient seen at bedside. She reports no pain of her LLE at this time though s he has been very vocal about pain, yelling out throughout the day. No CP, SOB, dizziness, nausea. Objective: [] Vital Signs Temp 97.9 F 12/18/17 19:24 Pulse 73 12/18/17 19:24 Resp 18 12/18/17 19:41 BP 100/42 12/18/17 19:24 Pulse Ox 99 12/18/17 20:26 Intake & Output 12/18/17 12/18/17 12/19/17 06:59 18:59 06:59 Intake Total 770 585 Output Total 230 150 Balance 540 435 Weight 155 lb Intake: IV Fluids 90 ABX - CEFAZOLIN 90 Oral 680 585 Output: Gonzalez 230 150 Other: # Bowel Movements 0 0 Laboratory Last Values WBC 8.5 10^3/ul (3.5-10.8) 12/18/17 04:50 RBC 4.60 10^6/ul (4.0-5.4) 12/18/17 04:50 Hgb 8.5 g/dl (12.0-16.0) L 12/18/17 04:50 Hct 27 % (35-47) L 12/18/17 04:50 MCV 59 fL (80-97) L 12/18/17 04:50 MCH 19 pg (27-31) L 12/18/17 04:50 MCHC 31 g/dl (31-36) 12/18/17 04:50 RDW 17 % (10.5-15) H 12/18/17 04:50 Plt Count 148 10^3/ul (150-450) L 12/18/17 04:50 MPV 8.5 um3 (7.4-10.4) 12/18/17 04:50 Neut % (Auto) 86.2 % (38-83) H 12/18/17 04:50 Lymph % (Auto) 6.2 % (25-47) L 12/18/17 04:50 [place] % (Auto) 7.5 % (0-7) H 12/18/17 04:50 Eos % (Auto) 0 % (0-6) 12/18/17 04:50 Baso % (Auto) 0.1 % (0-2) 12/18/17 04:50 Absolute Neuts (auto) 7.3 10^3/ul (1.5-7.7) 12/18/17 04:50 Absolute Lymphs (auto) 0.5 10^3/ul (1.0-4.8) L 12/18/17 04:50 Absolute Monos (auto) 0.6 10^3/ul (0-0.8) 12/18/17 04:50 Absolute Eos (auto) 0 10^3/ul (0-0.6) 12/18/17 04:50 Absolute Basos (auto) 0 10^3/ul (0-0.2) 12/18/17 04:50 Absolute Nucleated RBC 0 10^3/ul 12/18/17 04:50 Nucleated RBC % 0.1 12/18/17 04:50 Giant Platelets Present 12/16/17 10:07 Hypochromasia 2+ 12/16/17 10:07 Microcytosis 2+ 12/16/17 10:07 Target Cells 1+ 12/16/17 10:07 Hem Pathologist Commnt 12/16/17 10:07 APTT 31.3 seconds (26.0-36.3) 12/16/17 10:07 Sodium 134 mmol/L (139-145) L 12/18/17 04:50 Potassium 4.5 mmol/L (3.5-5.0) 12/18/17 04:50 Chloride 102 mmol/L (101-111) 12/18/17 04:50 Carbon Dioxide 27 mmol/L (22-32) 12/18/17 04:50 Anion Gap 5 mmol/L (2-11) 12/18/17 04:50 BUN 32 mg/dL (6-24) H 12/18/17 04:50 Creatinine 1.10 mg/dL (0.51-0.95) H 12/18/17 04:50 Est GFR ( Amer) 61.3 (>60) 12/18/17 04:50 Est GFR (Non-Af Amer) 47.7 (>60) 12/18/17 04:50 BUN/Creatinine Ratio 29.1 (8-20) H 12/18/17 04:50 Glucose 294 mg/dL (70-100) H 12/18/17 04:50 POC Glucose (mg/dL) 171 mg/dL (70-100) H 12/18/17 16:58 Hemoglobin A1c 7.5 % (4.0-5.6) H 12/16/17 10:07 Calcium 8.3 mg/dL (8.6-10.3) L 12/18/17 04:50 Magnesium 1.8 mg/dL (1.9-2.7) L 12/16/17 10:07 Iron 29 ug/dL (50-212) L 12/17/17 05:08 TIBC 279 mcg/dL (250-450) 12/17/17 05:08 % Saturation 10 % (15-55) L 12/17/17 05:08 Unsat Iron Binding 250 ug/dL 12/17/17 05:08 Transferrin 199 mg/dL (203-362) L 12/17/17 05:08 Ferritin 147.5 ng/mL (11-307) 12/17/17 05:08 Total Bilirubin 0.80 mg/dL (0.2-1.0) 12/16/17 10:07 AST 14 U/L (13-39) 12/16/17 10:07 ALT 9 U/L (7-52) 12/16/17 10:07 Alkaline Phosphatase 103 U/L (34-104) 12/16/17 10:07 Troponin I 0.01 ng/mL (<0.04) 12/16/17 10:07 B-Natriuretic Peptide 140 pg/mL (-100) H 12/16/17 10:07 Total Protein 6.7 g/dL (6.4-8.9) 12/16/17 10:07 Albumin 3.2 g/dL (3.2-5.2) 12/16/17 10:07 Globulin 3.5 g/dL (2-4) 12/16/17 10:07 Albumin/Globulin Ratio 0.9 (1-3) L 12/16/17 10:07 General: Well appearing, NAD LLE: Dressings CDI without surrounding erythema. Thigh is soft and nontender. DF /PF intact. DP 2+ BL LE: Calves supple and nontender without erythema, edema or palpable cords Assessment: []POD 1 sp TFN nailing left hip, Dr Amarjit Plan: []TTWB LLE Dry sterile dressing change daily Lovenox 30 mg sq q 24 hr. Appreciate hospitalist comanagement
[2017-12-18] MEDS: Enoxaparin(*) 30 MG/0.3 ML SYR SUBCUT SCH (21:48)
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
[2017-12-19] MEDS: oxyCODONE/Acetamin 5/325 MG* TAB PO PRN ×4 (04:57→21:45)
[2017-12-19 05:27] LABS: Hematocrit 22 % (35-47); Hemoglobin 7.2 g/dl (12.0-16.0); Mean Corpuscular HGB Conc 33 g/dl (31-36); Mean Corpuscular Hemoglobin 19 pg (27-31); Mean Corpuscular Volume 58 fL (80-97); Red Blood Count 3.79 10^6/ul (4.0-5.4); Red Cell Distribution Width 17 % (10.5-15)
[2017-12-19 05:34] LABS: INR 0.78 (0.77-1.02)
[2017-12-19 05:41] LABS: EGFR Non-African American 57.9 (>60)
[2017-12-19 05:51] LABS: ABS Basophils 0 10^3/ul (0-0.2); ABS Eosinophils 0.3 10^3/ul (0-0.6); ABS Lymphocytes 1.3 10^3/ul (1.0-4.8); ABS Monocytes 0.9 10^3/ul (0-0.8); ABS Neutrophils 5.5 10^3/ul (1.5-7.7); ABS Nucleated RBC 0 10^3/ul; Eosinophil % 3.4 % (0-6); Lymphocyte % 16.8 % (25-47); Mean Platelet Volume 8.6 um3 (7.4-10.4); Nucleated Red Blood Cells % 0; Platelet Count 142 10^3/ul (150-450)
[2017-12-19] MEDS: Omeprazole CAP* 20 MG PO SCH (09:04)
[2017-12-19] MEDS: Metoprolol Tartrate TAB* 25 MG PO SCH ×2 (09:04→21:47)
[2017-12-19] MEDS: Senna TAB PO SCH (09:04)
[2017-12-19] MEDS: Docusate CAP* 100 MG PO SCH (09:04)
[2017-12-19] MEDS: Insulin LISPRO* 1 UNITS UNIT SUBCUT SCH ×4 (09:12→21:46)
[2017-12-19] MEDS ORDERED: Heparin VIAL(*) 5000 UNITS/ML VIAL (FIVE THOUSAND) SUBCUT SCH (09:30)
--- NOTE | 2017-12-19 11:36 | PN ---
Progress Note - Progress Note Date of Service: 12/19/17 SOAP: Subjective: []Patient seen at bedside. She feels well with no current hip pain. She is very concerned about pain to change her dressing, or with any contact with her left leg. Denies chest pain, shortness of breath, dizziness. Refuses SCDs. Objective: [] Laboratory Last Values WBC 8.0 10^3/ul (3.5-10.8) 12/19/17 04:51 RBC 3.79 10^6/ul (4.0-5.4) L 12/19/17 04:51 Hgb 7.2 g/dl (12.0-16.0) L 12/19/17 04:51 Hct 22 % (35-47) L 12/19/17 04:51 MCV 58 fL (80-97) L 12/19/17 04:51 MCH 19 pg (27-31) L 12/19/17 04:51 MCHC 33 g/dl (31-36) 12/19/17 04:51 RDW 17 % (10.5-15) H 12/19/17 04:51 Plt Count 142 10^3/ul (150-450) L 12/19/17 04:51 MPV 8.6 um3 (7.4-10.4) 12/19/17 04:51 Neut % (Auto) 68.9 % (38-83) 12/19/17 04:51 Lymph % (Auto) 16.8 % (25-47) L 12/19/17 04:51 [place] % (Auto) 10.7 % (0-7) H 12/19/17 04:51 Eos % (Auto) 3.4 % (0-6) 12/19/17 04:51 Baso % (Auto) 0.2 % (0-2) 12/19/17 04:51 Absolute Neuts (auto) 5.5 10^3/ul (1.5-7.7) 12/19/17 04:51 Absolute Lymphs (auto) 1.3 10^3/ul (1.0-4.8) 12/19/17 04:51 Absolute Monos (auto) 0.9 10^3/ul (0-0.8) H 12/19/17 04:51 Absolute Eos (auto) 0.3 10^3/ul (0-0.6) 12/19/17 04:51 Absolute Basos (auto) 0 10^3/ul (0-0.2) 12/19/17 04:51 Absolute Nucleated RBC 0 10^3/ul 12/19/17 04:51 Nucleated RBC % 0 12/19/17 04:51 Large Platelets Present 12/19/17 04:51 Giant Platelets Present 12/16/17 10:07 Hypochromasia 1+ 12/19/17 04:51 Microcytosis 2+ 12/19/17 04:51 Target Cells 1+ 12/16/17 10:07 Elliptocytes 1+ 12/19/17 04:51 Hem Pathologist Commnt 12/16/17 10:07 INR (Anticoag Therapy) 0.78 (0.77-1.02) 12/19/17 04:51 APTT 29.2 seconds (26.0-36.3) 12/19/17 04:51 Sodium 135 mmol/L (139-145) L 12/19/17 04:51 Potassium 3.9 mmol/L (3.5-5.0) 12/19/17 04:51 Chloride 102 mmol/L (101-111) 12/19/17 04:51 Carbon Dioxide 27 mmol/L (22-32) 12/19/17 04:51 Anion Gap 6 mmol/L (2-11) 12/19/17 04:51 BUN 36 mg/dL (6-24) H 12/19/17 04:51 Creatinine 0.93 mg/dL (0.51-0.95) 12/19/17 04:51 Est GFR ( Amer) 74.4 (>60) 12/19/17 04:51 Est GFR (Non-Af Amer) 57.9 (>60) 12/19/17 04:51 BUN/Creatinine Ratio 38.7 (8-20) H 12/19/17 04:51 Glucose 174 mg/dL (70-100) H 12/19/17 04:51 POC Glucose (mg/dL) 243 mg/dL (70-100) H 12/18/17 21:21 Hemoglobin A1c 7.5 % (4.0-5.6) H 12/16/17 10:07 Calcium 8.0 mg/dL (8.6-10.3) L 12/19/17 04:51 Magnesium 1.8 mg/dL (1.9-2.7) L 12/16/17 10:07 Iron 29 ug/dL (50-212) L 12/17/17 05:08 TIBC 279 mcg/dL (250-450) 12/17/17 05:08 % Saturation 10 % (15-55) L 12/17/17 05:08 Unsat Iron Binding 250 ug/dL 12/17/17 05:08 Transferrin 199 mg/dL (203-362) L 12/17/17 05:08 Ferritin 147.5 ng/mL (11-307) 12/17/17 05:08 Total Bilirubin 0.80 mg/dL (0.2-1.0) 12/16/17 10:07 AST 14 U/L (13-39) 12/16/17 10:07 ALT 9 U/L (7-52) 12/16/17 10:07 Alkaline Phosphatase 103 U/L (34-104) 12/16/17 10:07 Troponin I 0.01 ng/mL (<0.04) 12/16/17 10:07 B-Natriuretic Peptide 140 pg/mL (-100) H 12/16/17 10:07 Total Protein 6.7 g/dL (6.4-8.9) 12/16/17 10:07 Albumin 3.2 g/dL (3.2-5.2) 12/16/17 10:07 Globulin 3.5 g/dL (2-4) 12/16/17 10:07 Albumin/Globulin Ratio 0.9 (1-3) L 12/16/17 10:07 Vital Signs Temp 97.6 F 12/19/17 07:22 Pulse 64 12/19/17 07:22 Resp 14 12/19/17 10:04 BP 107/42 12/19/17 07:22 Pulse Ox 100 12/19/17 07:22 Intake & Output 12/18/17 12/19/17 12/19/17 18:59 06:59 18:59 Intake Total 585 2083 Output Total 150 400 Balance 435 1683 Intake: IV Fluids 1546 NS (0.9%) 1546 IVPB 57 ABX - CEFAZOLIN 57 Oral 585 480 Output: Gonzalez 150 400 Other: # Bowel Movements 0 General: Well appearing, NAD LLE: Dressings changed, incisions CDI without surrounding erythema. Thigh is soft and nontender. DF/PF intact. DP 2+ BL LE: Calves supple and nontender without erythema, edema or palpable cords Assessment: []POD 2 sp TFN nailing left hip, Dr Ocasio Plan: []TTWB LLE Dry sterile dressing change daily Lovenox 30 mg sq q 24 hr. Needs to wear SCDs as much as able 1 unit PRBC ordered, discussed with medicine, in agreement Appreciate hospitalist ruben
[2017-12-19] MEDS: Enoxaparin(*) 30 MG/0.3 ML SYR SUBCUT SCH (21:46)
--- NOTE | 2017-12-19 21:46 | PN ---
Subjective Date of Service: 12/19/17 Interval History: Hgb to 7.2. Consented for blood, 1 u pRBC by Ortho. Pt not oriented. Forgetful. 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 Objective Active Medications: Dextrose (D50w Syringe 50 Ml*) 12.5 gm IV PUSH .FOR FS < 60 - SS PRN PRN Reason: FS < 60 Docusate Sodium (Colace Cap*) 100 mg PO DAILY PENDING SALE TO [facility] Last Admin: 12/19/17 09:04 Dose: 100 mg Enoxaparin Sodium (Lovenox(*)) 30 mg SUBCUT Q24H PENDING SALE TO [facility] Last Admin: 12/18/17 21:48 Dose: 30 mg Insulin Human Lispro (Humalog*) 0 units SUBCUT ACHS PENDING SALE TO [facility] PRN Reason: Protocol Last Admin: 12/19/17 17:44 Dose: 2 unit Metoprolol Tartrate (Lopressor Tab*) 25 mg PO BID PENDING SALE TO [facility] Last Admin: 12/19/17 09:04 Dose: 25 mg Morphine Sulfate (Morphine Vial*) 2 mg IV Q3H PRN PRN Reason: PAIN - MILD Last Admin: 12/18/17 06:13 Dose: 2 mg Omeprazole (Prilosec Cap*) 40 mg PO DAILY PENDING SALE TO [facility] Last Admin: 12/19/17 09:04 Dose: 40 mg Ondansetron HCl (Zofran Inj*) 4 mg IV Q4H PRN PRN Reason: NAUSEA Last Admin: 12/16/17 18:05 Dose: 4 mg Oxycodone/Acetaminophen (Percocet 5/325 Tab*) 1 tab PO Q4H PRN PRN Reason: PAIN Last Admin: 12/19/17 17:09 Dose: 1 tab Polyethylene Glycol/Electrolytes (Miralax*) 17 gm PO DAILY PRN PRN Reason: CONSTIPATION Last Admin: 12/18/17 08:48 Dose: 17 gm Senna (Senokot Tab*) 1 tab PO DAILY PENDING SALE TO [facility] Last Admin: 12/19/17 09:04 Dose: 1 tab Vital Signs - 8 hr 12/19/17 12/19/17 12/19/17 16:19 17:09 19:20 Temperature 98.2 F 97.8 F Pulse Rate 72 78 Respiratory 16 16 18 Rate Blood Pressure 112/44 121/47 (mmHg) O2 Sat by Pulse 98 98 Oximetry 12/19/17 12/19/17 12/19/17 19:28 19:35 19:36 Temperature 97.8 F Pulse Rate 78 Respiratory 16 18 18 Rate Blood Pressure 119/48 (mmHg) O2 Sat by Pulse 96 Oximetry Oxygen Devices in Use Now: Nasal Cannula Appearance: NAD Eyes: No Scleral Icterus Neck: NL Appearance and Movements; NL JVP, Trachea Midline Respiratory: Symmetrical Chest Expansion and Respiratory Effort Neurological: - - oriented to person only Nutrition: Taking PO's Result Diagrams: 12/19/17 04:51 12/19/17 04:51 Additional Lab and Data: Laboratory Results - last 24 hr 12/18/17 12/19/17 12/19/17 21:21 04:51 04:51 WBC 8.0 RBC 3.79 L Hgb 7.2 L Hct 22 L MCV 58 L MCH 19 L MCHC 33 RDW 17 H Plt Count 142 L MPV 8.6 Neut % (Auto) 68.9 Lymph % (Auto) 16.8 L [place] % (Auto) 10.7 H Eos % (Auto) 3.4 Baso % (Auto) 0.2 Absolute Neuts (auto) 5.5 Absolute Lymphs (auto) 1.3 Absolute Monos (auto) 0.9 H Absolute Eos (auto) 0.3 Absolute Basos (auto) 0 Absolute Nucleated RBC 0 Nucleated RBC % 0 Large Platelets Present Hypochromasia 1+ Microcytosis 2+ Elliptocytes 1+ INR (Anticoag Therapy) APTT Sodium 135 L Potassium 3.9 Chloride 102 Carbon Dioxide 27 Anion Gap 6 BUN 36 H Creatinine 0.93 Est GFR ( Amer) 74.4 Est GFR (Non-Af Amer) 57.9 BUN/Creatinine Ratio 38.7 H Glucose 174 H POC Glucose (mg/dL) 243 H Calcium 8.0 L Blood Type Antibody Screen Crossmatch 12/19/17 12/19/17 12/19/17 04:51 04:51 07:26 WBC RBC Hgb Hct MCV MCH MCHC RDW Plt Count MPV Neut % (Auto) Lymph % (Auto) [place] % (Auto) Eos % (Auto) Baso % (Auto) Absolute Neuts (auto) Absolute Lymphs (auto) Absolute Monos (auto) Absolute Eos (auto) Absolute Basos (auto) Absolute Nucleated RBC Nucleated RBC % Large Platelets Hypochromasia Microcytosis Elliptocytes INR (Anticoag Therapy) 0.78 APTT 29.2 Sodium Potassium Chloride Carbon Dioxide Anion Gap BUN Creatinine Est GFR ( Amer) Est GFR (Non-Af Amer) BUN/Creatinine Ratio Glucose POC Glucose (mg/dL) 167 H Calcium Blood Type O Positive Antibody Screen Negative Crossmatch See Detail 12/19/17 12/19/17 12/19/17 11:47 16:46 21:39 WBC RBC Hgb Hct MCV MCH MCHC RDW Plt Count MPV Neut % (Auto) Lymph % (Auto) [place] % (Auto) Eos % (Auto) Baso % (Auto) Absolute Neuts (auto) Absolute Lymphs (auto) Absolute Monos (auto) Absolute Eos (auto) Absolute Basos (auto) Absolute Nucleated RBC Nucleated RBC % Large Platelets Hypochromasia Microcytosis Elliptocytes INR (Anticoag Therapy) APTT Sodium Potassium Chloride Carbon Dioxide Anion Gap BUN Creatinine Est GFR ( Amer) Est GFR (Non-Af Amer) BUN/Creatinine Ratio Glucose POC Glucose (mg/dL) 181 H 179 H 175 H Calcium Blood Type Antibody Screen Crossmatch Assess/Plan/Problems-Billing Assessment: 82 yo female PMH severe dementia, HTN, NIDDM, p/w left femur fracture s/p ORIF. diastolic dysfunction. LUIS CARLOS (improved). needing rehab. Anemic, getting 1u pRBC. - Patient Problems (1) Femur fracture, left Current Visit: Yes Status: Acute Code(s): S72.92XA - UNSP FRACTURE OF LEFT FEMUR, INIT ENCNTR FOR CLOSED FRACTURE SNOMED Code(s): 51632657 Comment: appreciate ortho recs. POD #2 femoral nail lovenox dvt ppx. PT likely to SNF postoperative anemia. getting 1 u prbc given diastolic dysfunction. (2) Diabetes mellitus Current Visit: Yes Status: Acute Code(s): E11.9 - TYPE 2 DIABETES MELLITUS WITHOUT COMPLICATIONS SNOMED Code(s): 09467952 Comment: A1C 7.5 POC qachs holding home pioglitizone SSI (3) HTN (hypertension) Current Visit: Yes Status: Acute Code(s): I10 - ESSENTIAL (PRIMARY) HYPERTENSION SNOMED Code(s): 29822191 Comment: SBP 110-120s. stop amlodipine 5mg, stop losartan 50mg. continue metoprolol 25mg BID (4) Severe dementia Current Visit: Yes Status: Acute Code(s): F03.90 - UNSPECIFIED DEMENTIA WITHOUT BEHAVIORAL DISTURBANCE SNOMED Code(s): 30820640 Comment: has home aides 7 days a week. (5) Diastolic dysfunction Current Visit: Yes Status: Acute Code(s): I51.9 - HEART DISEASE, UNSPECIFIED SNOMED Code(s): 3880882 Comment: not in acute exacerbation. no Hx of CHF. Status and Disposition: medicine inpatient. needs rehab placement.
[2017-12-20 05:40] LABS: Hematocrit 27 % (35-47); Hemoglobin 9.1 g/dl (12.0-16.0); Mean Corpuscular HGB Conc 33 g/dl (31-36); Mean Corpuscular Hemoglobin 21 pg (27-31); Mean Corpuscular Volume 61 fL (80-97); Red Blood Count 4.43 10^6/ul (4.0-5.4); Red Cell Distribution Width 19 % (10.5-15); White Blood Count 7.9 10^3/ul (3.5-10.8)
[2017-12-20 05:57] LABS: ABS Basophils 0.1 10^3/ul (0-0.2); ABS Eosinophils 0.4 10^3/ul (0-0.6); ABS Lymphocytes 2.1 10^3/ul (1.0-4.8); ABS Monocytes 0.8 10^3/ul (0-0.8); ABS Neutrophils 4.5 10^3/ul (1.5-7.7); ABS Nucleated RBC 0 10^3/ul; Eosinophil % 5.2 % (0-6); Lymphocyte % 26.2 % (25-47); Mean Platelet Volume 8.7 um3 (7.4-10.4); Nucleated Red Blood Cells % 0.1; Platelet Count 145 10^3/ul (150-450)
[2017-12-20] MEDS: oxyCODONE/Acetamin 5/325 MG* TAB PO PRN ×3 (06:13→14:12)
[2017-12-20] MEDS: Morphine VIAL* 4 MG/ML VIAL (1 ml vial) IV PRN (06:22)
[2017-12-20] MEDS: Polyethylene Glycol 3350* 17 GM PACKET PO PRN (09:31)
[2017-12-20] MEDS: Insulin LISPRO* 1 UNITS UNIT SUBCUT SCH ×2 (09:31→12:49)
[2017-12-20] MEDS: Omeprazole CAP* 20 MG PO SCH (09:31)
[2017-12-20] MEDS: Metoprolol Tartrate TAB* 25 MG PO SCH (09:31)
[2017-12-20] MEDS: Docusate CAP* 100 MG PO SCH (09:31)
[2017-12-20] MEDS: Senna TAB PO SCH (09:31)
[2017-12-20] MEDS ORDERED: Bisacodyl SUPP* 10 MG SUPP PR ONE (09:59)
[2017-12-20] MEDS ORDERED: Magnesium Hydroxide LIQ* 30 ML UDC PO ONE (09:59)
--- NOTE | 2017-12-20 10:08 | PN ---
Progress Note - Progress Note Date of Service: 12/20/17 SOAP: Subjective: []Patient seen at bedside. She is in no pain at rest but is in a great amount of pain with any movement. Denies CP, SOB, dizziness, nausea Objective: [] Vital Signs Temp 98.4 F 12/20/17 07:47 Pulse 78 12/20/17 07:47 Resp 20 12/20/17 10:24 BP 120/44 12/20/17 07:47 Pulse Ox 94 12/20/17 07:47 Intake & Output 12/19/17 12/20/17 12/20/17 18:59 06:59 18:59 Intake Total 450 600 225 Output Total 250 520 Balance 200 80 225 Weight 168 lb 12.8 oz Intake: Oral 450 600 225 Output: Gonzalez 250 520 Other: # Bowel Movements 0 Laboratory Last Values WBC 7.9 10^3/ul (3.5-10.8) 12/20/17 04:54 RBC 4.43 10^6/ul (4.0-5.4) 12/20/17 04:54 Hgb 9.1 g/dl (12.0-16.0) L 12/20/17 04:54 Hct 27 % (35-47) L 12/20/17 04:54 MCV 61 fL (80-97) L 12/20/17 04:54 MCH 21 pg (27-31) L 12/20/17 04:54 MCHC 33 g/dl (31-36) 12/20/17 04:54 RDW 19 % (10.5-15) H 12/20/17 04:54 Plt Count 145 10^3/ul (150-450) L 12/20/17 04:54 MPV 8.7 um3 (7.4-10.4) 12/20/17 04:54 Neut % (Auto) 57.3 % (38-83) 12/20/17 04:54 Lymph % (Auto) 26.2 % (25-47) 12/20/17 04:54 [place] % (Auto) 10.5 % (0-7) H 12/20/17 04:54 Eos % (Auto) 5.2 % (0-6) 12/20/17 04:54 Baso % (Auto) 0.8 % (0-2) 12/20/17 04:54 Absolute Neuts (auto) 4.5 10^3/ul (1.5-7.7) 12/20/17 04:54 Absolute Lymphs (auto) 2.1 10^3/ul (1.0-4.8) 12/20/17 04:54 Absolute Monos (auto) 0.8 10^3/ul (0-0.8) 12/20/17 04:54 Absolute Eos (auto) 0.4 10^3/ul (0-0.6) 12/20/17 04:54 Absolute Basos (auto) 0.1 10^3/ul (0-0.2) 12/20/17 04:54 Absolute Nucleated RBC 0 10^3/ul 12/20/17 04:54 Nucleated RBC % 0.1 12/20/17 04:54 Large Platelets Present 12/19/17 04:51 Giant Platelets Present 12/16/17 10:07 Hypochromasia 1+ 12/19/17 04:51 Microcytosis 2+ 12/19/17 04:51 Target Cells 1+ 12/16/17 10:07 Elliptocytes 1+ 12/19/17 04:51 Hem Pathologist Commnt 12/16/17 10:07 INR (Anticoag Therapy) 0.78 (0.77-1.02) 12/19/17 04:51 APTT 29.2 seconds (26.0-36.3) 12/19/17 04:51 Sodium 134 mmol/L (139-145) L 12/20/17 04:54 Potassium 4.2 mmol/L (3.5-5.0) 12/20/17 04:54 Chloride 102 mmol/L (101-111) 12/20/17 04:54 Carbon Dioxide 26 mmol/L (22-32) 12/20/17 04:54 Anion Gap 6 mmol/L (2-11) 12/20/17 04:54 BUN 29 mg/dL (6-24) H 12/20/17 04:54 Creatinine 0.71 mg/dL (0.51-0.95) 12/20/17 04:54 Est GFR ( Amer) 101.6 (>60) 12/20/17 04:54 Est GFR (Non-Af Amer) 79.0 (>60) 12/20/17 04:54 BUN/Creatinine Ratio 40.8 (8-20) H 12/20/17 04:54 Glucose 153 mg/dL (70-100) H 12/20/17 04:54 POC Glucose (mg/dL) 164 mg/dL (70-100) H 12/20/17 07:28 Hemoglobin A1c 7.5 % (4.0-5.6) H 12/16/17 10:07 Calcium 8.5 mg/dL (8.6-10.3) L 12/20/17 04:54 Magnesium 1.8 mg/dL (1.9-2.7) L 12/16/17 10:07 Iron 29 ug/dL (50-212) L 12/17/17 05:08 TIBC 279 mcg/dL (250-450) 12/17/17 05:08 % Saturation 10 % (15-55) L 12/17/17 05:08 Unsat Iron Binding 250 ug/dL 12/17/17 05:08 Transferrin 199 mg/dL (203-362) L 12/17/17 05:08 Ferritin 147.5 ng/mL (11-307) 12/17/17 05:08 Total Bilirubin 0.80 mg/dL (0.2-1.0) 12/16/17 10:07 AST 14 U/L (13-39) 12/16/17 10:07 ALT 9 U/L (7-52) 12/16/17 10:07 Alkaline Phosphatase 103 U/L (34-104) 12/16/17 10:07 Troponin I 0.01 ng/mL (<0.04) 12/16/17 10:07 B-Natriuretic Peptide 140 pg/mL (-100) H 12/16/17 10:07 Total Protein 6.7 g/dL (6.4-8.9) 12/16/17 10:07 Albumin 3.2 g/dL (3.2-5.2) 12/16/17 10:07 Globulin 3.5 g/dL (2-4) 12/16/17 10:07 Albumin/Globulin Ratio 0.9 (1-3) L 12/16/17 10:07 Blood Type O Positive 12/19/17 04:51 Antibody Screen Negative 12/19/17 04:51 Crossmatch See Detail 12/19/17 04:51 General: Well appearing, NAD LLE: Dressings changed, incisions CDI without surrounding erythema. Thigh is soft and nontender. DF/PF intact. DP 2+ BL LE: Calves supple and nontender without erythema, edema or palpable cords Assessment: []POD 3 sp TFN nailing left hip, Dr Ocasio Acute bloodloss anemia Plan: []TTWB LLE Dry sterile dressing change daily Lovenox 30 mg sq q 24 hr. Needs to wear SCDs as much as able Appreciate hospitalist comanagement
--- NOTE | 2017-12-20 11:26 | DS ---
DATE OF ADMISSION: 12/16/2017. DATE OF DISCHARGE: 12/20/2017. ADMITTING AND ATTENDING PHYSICIAN: Dr. Ted Dominguez. PRIMARY CARE PHYSICIAN: Dr. Jairo Mendez. CONSULTING ORTHOPEDIC SURGEON: Dr. Ocasio. CHIEF COMPLAINT: Left hip pain. PRINCIPAL DIAGNOSIS: Left subtrochanteric femur fracture, status post TFN with Dr. Ocasio on 12/17/2017. HISTORY OF PRESENT ILLNESS: Niki Jonas is an 82-year-old female with a past medical history of severe dementia, hypertension, noninsulin dependent diabetes mellitus who had had a recent fall two days prior to admission. She had imaging done at [facility], though it did not show any fractures at that time. She was discharged to home and on the day of her admission her caregiver was swinging her legs across to set her up in bed when the patient immediately yelled out pain. The leg had foreshortening. She presented to [facility] Emergency Room and was found to have a left subtrochanteric femur fracture. She was cleared medically by the Hospitalist service. She did get an echocardiogram which did show some evidence of diastolic dysfunction with a preserved ejection fraction of 55 to 60 percent with mild tricuspid regurgitation. Her postoperative course was complicated by some anemia with a hemoglobin down to 7.2 on hospital day number two for which she received one unit. Her hemoglobin on discharge was 9.1. Admission hemoglobin was 10.9. She does have prominent microcytosis with MCV's 58 to 61. She has [place] heritage and should be considered for work-up for thalassemia as an outpatient if this has not already been done. She is at baseline exquisitely tender chronically to touch, including in the abdomen. She was receiving Percocet by the time of discharge. She received a Gonzalez perioperatively to help control her pain with movements and that has now been removed. Her blood pressure while on her three home medications dipped down to the 90s to 100s and her creatinine bumped from 0.8 to 1.1 on hospital day number three. She received some maintenance IV fluids for one day and her creatinine on discharge is down to 0.7, on admission it was 0.8. Her A1c is 7.5. Her Losartan and Hydrochlorothiazide are not being continued on discharge, and continue her Metoprolol. Blood pressures on that regimen have been around the 120s. DISCHARGE MEDICATIONS: 1. Lovenox 30 mg subcu for 27 additional days, a total of a 30 day course. 2. Metoprolol 25 mg p.o. b.i.d. 3. Prilosec 40 mg p.o. daily. 4. Docusate 100 mg p.o. b.i.d. (new). 5. Meclizine 25 mg p.o. t.i.d. 6. Percocet one tab p.o. q.4 hours prn (new). 7. Pioglitazone (Actos) 30 mg p.o. daily. 8. Polyethylene Glycol 17 gm p.o. daily (new). 9. Senna one tab p.o. daily (new). DIET: Carbohydrate consistent heart healthy, unchanged. ACTIVITY LEVEL: The patient is toe touch weightbearing on the left leg. FOLLOW-UP: Please follow-up with Dr. Mendez while at [facility]; he is her primary care provider. Dr. Afshin Ocasio from Orthopedics should be seen within 10 to 14 days. Consideration to do hemoglobin electrophoresis to work- up her anemia with profound microcytosis if this has not already been considered. Time spent on this discharge was 35 minutes. [id number]/[facility] #: [id number] JACOB
[2017-12-20 12:01] VITALS: BP 155/71
== END 2017-12-20 16:15 | disposition swing bed (61) | DRG 481 ==
LOC: MERGE 09:16 → ED 09:16 → SSU 13:15
PROVIDERS: ADMIT Internal Medicine; ATTEND Internal Medicine
PROC: 0QS704Z Reposition Left Upper Femur with Internal Fixation Device, Open Approach (ICD-10-PCS; principal; 2017-12-17 16:00)
PROC: 30233N1 Transfusion of Nonautologous Red Blood Cells into Peripheral Vein, Percutaneous Approach (ICD-10-PCS; 2017-12-19)
DX: S72.22XA Displaced subtrochanteric fracture of left femur, initial encounter for closed fracture (principal); N17.9 Acute kidney failure, unspecified; D62 Acute posthemorrhagic anemia; F03.90 Unspecified dementia, unspecified severity, without behavioral disturbance, psychotic disturbance, mood disturbance, and anxiety; E11.9 Type 2 diabetes mellitus without complications; I10 Essential (primary) hypertension; Z66 Do not resuscitate; W17.89XA Other fall from one level to another, initial encounter; R42 Dizziness and giddiness; I07.1 Rheumatic tricuspid insufficiency; Z87.820 Personal history of traumatic brain injury; Z72.89 Other problems related to lifestyle; Y92.009 Unspecified place in unspecified non-institutional (private) residence as the place of occurrence of the external cause
CPT/HCPCS: 36415; 72170; 76001; 80048; 80053; 82728; 83036; 83540; 83550; 83735; 83880; 84484; 85025; 85060; 85610; 85730; 86850; 86900; 86901; 86922; 93005; 93306; 99284; A9270-GY; C1713; C1776; G8978-GP-CN; G8980-GP-CI; J0690; J1100; J1170; J1650; J1885; J2250; J2270; J2405; J2704; J3010; P9040

== ENCOUNTER 2019-09-09 07:34 | Day surgery (SDC) | payer MEDICARE, MEDICAID ==
[~2019-09-09 07:34] MED LIST: Buffered Lidocaine 1% SYRIN* 1 ML/SYRINGE INTRADERM ONE; Lactated Ringers 1000 ML Bag* 1,000 ML IV SCH
[2019-09-09] MEDS ORDERED: ceFAZolin 2 GM PREMIX in ORs 2 GM/50 ML BAG ONE (07:43)
[2019-09-09] MEDS ORDERED: Propofol* 10 MG/ML 20 ML BTL ONE ×2 (08:05→09:10)
[2019-09-09] MEDS ORDERED: fentaNYL* 50 MCG/ML 2 ML VIAL (100 MCG VIAL) ONE (08:05)
[2019-09-09] MEDS ORDERED: Lidocaine 2% PF * 5 ML VIAL ONE (08:05)
[2019-09-09] MEDS ORDERED: Lidocaine 1% w EPI 1:100,000* MDV 20 ML VIAL ONE (08:23)
[2019-09-09] MEDS ORDERED: Mineral Oil Sterile, TOPICAL* 25 ML BTL ONE (08:23)
[2019-09-09] MEDS ORDERED: Bupivacaine 0.25% SDV PF* 10 ML VIAL INJ ONE (08:23)
[2019-09-09] MEDS ORDERED: Naloxone* 0.4 MG/ML 1 ML VIAL IV PRN (09:53)
[2019-09-09 11:49] VITALS: BP 121/64
== END 2019-09-09 11:45 ==
LOC: OR 07:34
PROVIDERS: ATTEND Plastic Surgery
DX: D04.61 Carcinoma in situ of skin of right upper limb, including shoulder (principal); I10 Essential (primary) hypertension; K21.9 Gastro-esophageal reflux disease without esophagitis; E11.9 Type 2 diabetes mellitus without complications; Z79.4 Long term (current) use of insulin; R26.9 Unspecified abnormalities of gait and mobility
CPT/HCPCS: 88305; 88329; A9270-GY; J0690; J2704; J3010; J3490